=== PATIENT | female | born 1940 ===

== ENCOUNTER 2024-03-05 19:13 | Observation (INO) ==
[2024-03-05] MEDS ORDERED: IOPAMIDOL 100 ML BOTTLE IV ONE (19:14)
[2024-03-05] MEDS: ACETAMINOPHEN 1,000 MG/100 ML BAG IV ONE (20:00)
[2024-03-05] MEDS: PANTOPRAZOLE 40 MG VIAL IV ONE (20:00)
[2024-03-05 20:15] LABS: Basophils # (Auto) 0.05 K/mcL (0.00-0.30); Basophils % (Auto) 0.3 % (0.0-2.0); Eosinophils # (Auto) 0.03 K/mcL (0.00-0.70); Eosinophils % (Auto) 0.2 % (0.0-7.0); Hematocrit 44.8 % (34.1-44.9); Hemoglobin 14.8 g/dL (11.2-15.7); Lymphocytes # (Auto) 2.15 K/mcL (1.50-4.80); Lymphocytes % (Auto) 13.5 % (15.5-49.0); Mean Cell Volume 92.2 fL (80.0-100.0); Mean Platelet Volume 10.2 fL (8.8-12.5); Monocytes # (Auto) 0.78 K/mcL (0.10-0.90); Monocytes % (Auto) 4.9 % (1.0-12.0); Neutrophils % (Auto) 80.8 % (38.0-78.0); Platelet Count 306 K/mcL (140-440); RBC 4.86 M/mcL (3.59-5.38); WBC 15.9 K/mcL (4.5-11.0)
[2024-03-05 20:27] LABS: Appearance,Urine Clear (Clear); Bilirubin,Urine Negative (Negative); Color,Urine Yellow; Glucose,Urine (UA) Negative (Negative); Ketones,Urine Trace mg/dL (Negative); Leukocyte Esterase,Urine Negative /uL (Negative); Mucus,Urine Many /hpf; Nitrate,Urine Negative (Negative); Protein,Urine 100 mg/dL (Negative); Urine Blood Negative ery/mcL (Negative); Urine RBC 2 /hpf (0-3); Urine Squamous Epithelial Cell 1 /hpf (0-4); Urine WBC 4 /hpf (0-4); Urobilinogen,Urine Normal
[2024-03-05 20:35] LABS: ALT/SGPT 8 U/L (<40); AST/SGOT 17 U/L (<32); Albumin 4.5 gm/dL (3.2-5.2); Albumin/Globulin Ratio 1.5 (1.0-2.3); Alkaline Phosphatase 77 U/L (39-117); Bilirubin,Total 0.5 mg/dL (0.1-1.0); Blood Urea Nitrogen 12 mg/dL (8-23); Calcium 10.2 mg/dL (8.6-10.4); Carbon Dioxide 23 mmol/L (22-30); Chloride 98 mmol/L (96-108); Globulin 3.1 gm/dL (2.2-3.7); Glomerular Filtration Rate 85; Glucose 165 mg/dL (70-105); Potassium 3.7 mmol/L (3.3-5.1); Sodium 137 mmol/L (133-145)
[2024-03-05] MEDS: ONDANSETRON 4 MG/2 ML VIAL IV ONE (21:47)
[2024-03-05] MEDS ORDERED: morphine 2 MG/ML VIAL IV PRN (22:13)
[2024-03-05] MEDS: MAG HYDROX/AL HYDROX/SIMETH 30 ML ORAL.SUSP PO ONE (22:21)
[2024-03-05] MEDS: LIDOCAINE VISCOUS 2% 15 ML UNIT DOSE CUP PO ONE (22:21)
[2024-03-05] MEDS: DIPHENHYDRAMINE 12.5 MG/5 ML PO ONE (22:21)
[2024-03-05] MEDS: 0.9 % SODIUM CHLORIDE 1,000 ML IV SCH (23:46)
[2024-03-05] MEDS: ONDANSETRON 4 MG/2 ML VIAL IV PRN (23:54)
[2024-03-06 12:15] LABS: Basophils # (Auto) 0.01 K/mcL (0.00-0.30); Basophils % (Auto) 0.1 % (0.0-2.0); Eosinophils # (Auto) 0 K/mcL (0.00-0.70); Eosinophils % (Auto) 0 % (0.0-7.0); Hematocrit 39.8 % (34.1-44.9); Hemoglobin 13.2 g/dL (11.2-15.7); Lymphocytes # (Auto) 1.39 K/mcL (1.50-4.80); Mean Cell Volume 92.3 fL (80.0-100.0); Mean Corpuscular HGB Conc 33.2 g/dL (31.0-36.0); Mean Platelet Volume 10.2 fL (8.8-12.5); Monocytes # (Auto) 1.68 K/mcL (0.10-0.90); Monocytes % (Auto) 8.5 % (1.0-12.0); Neutrophils % (Auto) 84.1 % (38.0-78.0); Platelet Count 275 K/mcL (140-440); RBC 4.31 M/mcL (3.59-5.38); Red Cell Distribution Width 13.2 % (11.5-14.5); WBC 19.8 K/mcL (4.5-11.0)
[2024-03-06] MEDS: BENZOCAINE/MENTHOL 1 LOZENGE PO PRN ×2 (14:39→19:36)
[2024-03-06] MEDS: ACETAMINOPHEN 1,000 MG/100 ML BAG IV SCH (14:54)
[2024-03-06] MEDS: METOCLOPRAMIDE 10 MG/2 ML VIAL IV SCH (17:25)
[2024-03-07] MEDS: MAGNESIUM CITRATE 300 ML ORAL.SOL PO SCH (11:43)
[2024-03-07] MEDS: POLYETHYLENE GLYCOL 3350 17 GM PACKET PO SCH (19:20)
[2024-03-08 06:56] LABS: ALT/SGPT 8 U/L (<40); AST/SGOT 16 U/L (<32); Albumin 3.5 gm/dL (3.2-5.2); Albumin/Globulin Ratio 1.7 (1.0-2.3); Alkaline Phosphatase 53 U/L (39-117); Bilirubin,Direct 0.2 mg/dL (<0.3); Bilirubin,Total 0.5 mg/dL (0.1-1.0); Blood Urea Nitrogen 18 mg/dL (8-23); Calcium 8.3 mg/dL (8.6-10.4); Carbon Dioxide 24 mmol/L (22-30); Chloride 106 mmol/L (96-108); Globulin 2.1 gm/dL (2.2-3.7); Glomerular Filtration Rate 97; Glucose 80 mg/dL (70-105); Lactate Dehydrogenase 165 U/L (135-225); Phosphorous 2.2 mg/dL (2.5-4.5); Potassium 3.5 mmol/L (3.3-5.1); Sodium 141 mmol/L (133-145); Triglycerides 73 mg/dL (<150); Uric Acid 4.7 mg/dL (2.5-8.0)
[2024-03-08 07:08] LABS: Basophils # (Auto) 0.04 K/mcL (0.00-0.30); Basophils % (Auto) 0.4 % (0.0-2.0); Eosinophils # (Auto) 0.16 K/mcL (0.00-0.70); Eosinophils % (Auto) 1.5 % (0.0-7.0); Hematocrit 34.7 % (34.1-44.9); Hemoglobin 11.1 g/dL (11.2-15.7); Lymphocytes # (Auto) 2.51 K/mcL (1.50-4.80); Lymphocytes % (Auto) 24.2 % (15.5-49.0); Mean Cell Volume 95.3 fL (80.0-100.0); Mean Platelet Volume 10.7 fL (8.8-12.5); Monocytes # (Auto) 1.17 K/mcL (0.10-0.90); Monocytes % (Auto) 11.3 % (1.0-12.0); Neutrophils % (Auto) 62.4 % (38.0-78.0); Platelet Count 201 K/mcL (140-440); RBC 3.64 M/mcL (3.59-5.38); Red Cell Distribution Width 13.1 % (11.5-14.5); WBC 10.4 K/mcL (4.5-11.0)
[2024-03-08] MEDS ORDERED: ACETAMINOPHEN 1,000 MG/100 ML BAG IV PRN (08:26)
[2024-03-08] MEDS ORDERED: MAGNESIUM CITRATE 300 ML ORAL.SOL PO SCH (09:00)
[2024-03-08] MEDS ORDERED: POLYETHYLENE GLYCOL 3350 17 GM PACKET PO SCH (09:00)
== END 2024-03-08 17:10 | disposition home or self-care (01) ==
LOC: ED 19:13 → INTOOBSV 23:05 → MEDSUR 23:05
PROVIDERS: ADMIT Family Medicine Adult Medicine; ATTEND Family Medicine Adult Medicine

== ENCOUNTER 2024-03-13 23:41 | Inpatient (IN) ==
[2024-03-13] MEDS ORDERED: IOPAMIDOL 100 ML BOTTLE IV ONE (23:42)
[2024-03-14] MEDS: ONDANSETRON 4 MG/2 ML VIAL IV ONE ×2 (00:41→04:39)
[2024-03-14] MEDS: KETOROLAC 30 MG/ML VIAL IV ONE (00:41)
[2024-03-14] MEDS: PANTOPRAZOLE 40 MG VIAL IV ONE (00:41)
[2024-03-14 00:47] LABS: Basophils # (Auto) 0.03 K/mcL (0.00-0.30); Basophils % (Auto) 0.2 % (0.0-2.0); Eosinophils # (Auto) 0.18 K/mcL (0.00-0.70); Eosinophils % (Auto) 1.4 % (0.0-7.0); Hematocrit 43.3 % (34.1-44.9); Hemoglobin 14.2 g/dL (11.2-15.7); Lymphocytes # (Auto) 3.17 K/mcL (1.50-4.80); Lymphocytes % (Auto) 24.9 % (15.5-49.0); Mean Cell Volume 92.7 fL (80.0-100.0); Mean Corpuscular HGB Conc 32.8 g/dL (31.0-36.0); Monocytes # (Auto) 1.29 K/mcL (0.10-0.90); Monocytes % (Auto) 10.1 % (1.0-12.0); Neutrophils % (Auto) 62.9 % (38.0-78.0); Platelet Count 339 K/mcL (140-440); RBC 4.67 M/mcL (3.59-5.38); Red Cell Distribution Width 13.2 % (11.5-14.5); WBC 12.7 K/mcL (4.5-11.0)
[2024-03-14 01:10] LABS: ALT/SGPT 12 U/L (<40); AST/SGOT 18 U/L (<32); Albumin 4.4 gm/dL (3.2-5.2); Albumin/Globulin Ratio 1.5 (1.0-2.3); Alkaline Phosphatase 73 U/L (39-117); Bilirubin,Total 0.4 mg/dL (0.1-1.0); Blood Urea Nitrogen 13 mg/dL (8-23); Calcium 10.2 mg/dL (8.6-10.4); Carbon Dioxide 25 mmol/L (22-30); Chloride 99 mmol/L (96-108); Glomerular Filtration Rate 90; Glucose 123 mg/dL (70-105); Potassium 3.7 mmol/L (3.3-5.1); Sodium 138 mmol/L (133-145)
[2024-03-14] MEDS: FAMOTIDINE/PF 20 MG/2 ML VIAL IV ONE (04:39)
[2024-03-14] MEDS: METOCLOPRAMIDE 10 MG/2 ML VIAL IV ONE (04:39)
[2024-03-14] MEDS ORDERED: HYDROmorphone 0.5 MG/0.5 ML SYRINGE IV PRN (08:33)
[2024-03-14] MEDS: DEXTROSE 5%-LR 1,000 ML IV SCH (10:11)
[2024-03-14] MEDS: BENZOCAINE/MENTHOL 1 LOZENGE PO PRN (12:38)
[2024-03-14] MEDS: ACETAMINOPHEN 650 MG/65 ML BAG IV PRN (12:39)
[2024-03-14] MEDS ORDERED: MELATONIN 3 MG TABLET PO SCH (15:15)
[2024-03-14] MEDS: PANTOPRAZOLE 40 MG VIAL IV SCH (17:43)
[2024-03-14] MEDS: ALBUTEROL SULFATE 60 PUFF INHALER INH PRN (18:39)
[2024-03-15 05:56] LABS: Hematocrit 37.5 % (34.1-44.9); Mean Cell Volume 94.9 fL (80.0-100.0); Mean Platelet Volume 10.3 fL (8.8-12.5); Platelet Count 267 K/mcL (140-440); RBC 3.95 M/mcL (3.59-5.38); Red Cell Distribution Width 13.5 % (11.5-14.5)
[2024-03-15 06:17] LABS: Blood Urea Nitrogen 26 mg/dL (8-23); Calcium 8.8 mg/dL (8.6-10.4); Carbon Dioxide 27 mmol/L (22-30); Chloride 103 mmol/L (96-108); Glomerular Filtration Rate 81; Glucose 132 mg/dL (70-105); Potassium 3.8 mmol/L (3.3-5.1); Sodium 141 mmol/L (133-145)
[2024-03-15] MEDS: TIOTROPIUM BROMIDE 18 MCG INHALANT INH SCH (07:39)
[2024-03-15] MEDS ORDERED: NON FORMULARY MEDICATION 1 DOSE MISCELL (Tiotropium Bromide [Spiriva Respimat] 2.5 mcg/act INHALATION SCH (09:00)
[2024-03-15] MEDS ORDERED: DIATRIZOATE MEGLU/DIATRIZO SOD 120ML BOTTLE PO ONE (12:56)
[2024-03-15] MEDS: ONDANSETRON 4 MG/2 ML VIAL IV PRN (14:03)
[2024-03-15] MEDS: DEXTROSE 5%-LR 1,000 ML IV SCH (17:23)
[2024-03-16 06:39] LABS: Blood Urea Nitrogen 27 mg/dL (8-23); Calcium 9.1 mg/dL (8.6-10.4); Carbon Dioxide 28 mmol/L (22-30); Chloride 106 mmol/L (96-108); Glomerular Filtration Rate 85; Glucose 122 mg/dL (70-105); Potassium 3.6 mmol/L (3.3-5.1); Sodium 144 mmol/L (133-145)
[2024-03-16 06:56] LABS: Hematocrit 38.3 % (34.1-44.9); Hemoglobin 12.3 g/dL (11.2-15.7); Mean Cell Volume 95.5 fL (80.0-100.0); Mean Corpuscular HGB Conc 32.1 g/dL (31.0-36.0); Mean Platelet Volume 10.1 fL (8.8-12.5); Platelet Count 291 K/mcL (140-440); RBC 4.01 M/mcL (3.59-5.38); Red Cell Distribution Width 13.4 % (11.5-14.5); WBC 9.4 K/mcL (4.5-11.0)
[2024-03-16] MEDS: amLODIPine 10 MG TABLET PO SCH (12:36)
[2024-03-16] MEDS: LOSARTAN 25 MG TABLET PO SCH (12:36)
[2024-03-16] MEDS: DEXTROSE 5%-LR 1,000 ML IV SCH ×2 (12:37→22:37)
[2024-03-17 06:14] LABS: Hematocrit 38.2 % (34.1-44.9); Mean Cell Volume 96.5 fL (80.0-100.0); Mean Corpuscular HGB Conc 31.4 g/dL (31.0-36.0); Platelet Count 289 K/mcL (140-440); RBC 3.96 M/mcL (3.59-5.38); Red Cell Distribution Width 13.2 % (11.5-14.5); WBC 10.5 K/mcL (4.5-11.0)
[2024-03-17 06:58] LABS: Blood Urea Nitrogen 18 mg/dL (8-23); Carbon Dioxide 28 mmol/L (22-30); Chloride 106 mmol/L (96-108); Glomerular Filtration Rate 90; Glucose 111 mg/dL (70-105); Potassium 3.3 mmol/L (3.3-5.1); Sodium 145 mmol/L (133-145)
[2024-03-18 06:01] LABS: Hematocrit 33.4 % (34.1-44.9); Hemoglobin 10.6 g/dL (11.2-15.7); Mean Cell Volume 95.2 fL (80.0-100.0); Mean Corpuscular HGB Conc 31.7 g/dL (31.0-36.0); Mean Platelet Volume 9.8 fL (8.8-12.5); Platelet Count 238 K/mcL (140-440); RBC 3.51 M/mcL (3.59-5.38); WBC 9.1 K/mcL (4.5-11.0)
[2024-03-18 06:26] LABS: Blood Urea Nitrogen 8 mg/dL (8-23); Calcium 8.5 mg/dL (8.6-10.4); Carbon Dioxide 25 mmol/L (22-30); Chloride 106 mmol/L (96-108); Glomerular Filtration Rate 97; Glucose 118 mg/dL (70-105); Potassium 3.3 mmol/L (3.3-5.1); Sodium 140 mmol/L (133-145)
[2024-03-18] MEDS: DEXTROSE 5%-LR 1,000 ML IV SCH ×2 (10:29→12:01)
[2024-03-19 06:14] LABS: Hematocrit 35.9 % (34.1-44.9); Hemoglobin 11.6 g/dL (11.2-15.7); Mean Corpuscular HGB Conc 32.3 g/dL (31.0-36.0); Mean Platelet Volume 9.8 fL (8.8-12.5); Platelet Count 270 K/mcL (140-440); RBC 3.82 M/mcL (3.59-5.38); Red Cell Distribution Width 12.8 % (11.5-14.5); WBC 7.8 K/mcL (4.5-11.0)
[2024-03-19 06:45] LABS: Blood Urea Nitrogen 4 mg/dL (8-23); Calcium 8.7 mg/dL (8.6-10.4); Carbon Dioxide 26 mmol/L (22-30); Chloride 105 mmol/L (96-108); Glomerular Filtration Rate 97; Glucose 102 mg/dL (70-105); Potassium 3.2 mmol/L (3.3-5.1); Sodium 141 mmol/L (133-145)
[2024-03-19] MEDS: DEXTROSE 5%-LR 1,000 ML IV SCH (17:37)
== END 2024-03-20 15:20 | disposition home or self-care (01) | DRG 390 ==
LOC: ED 23:41 → MEDSUR 03-14 08:48
PROVIDERS: ADMIT Surgery Surgical Critical Care; ATTEND Surgery Surgical Critical Care